=== PATIENT | male | born 1995 | race African-American/Black ===

== ENCOUNTER 2020-05-08 20:51 | Emergency (ER) | payer BC ==
[~2020-05-08] VITALS: Ht 188 cm; Wt 165.1 kg
[2020-05-08 21:07] LABS: HEMATOCRIT 39.5 % (42.0-52.0); HEMOGLOBIN 13.3 gm/dL (14.0-18.0); MCH 31.9 pg (26.0-34.0); MCHC 33.6 g/dL (28.0-37.0); MCV 94.9 fL (80.0-100.0); MPV 8.2 fl. (7.2-11.1); RBC 4.17 mil/uL (4.50-6.00); RDW-CV 14.2 % (10.5-14.5); WBC 6.3 thou/uL (4.0-11.0)
[2020-05-08 21:15] LABS: CALCIUM 9.2 mg/dL (8.5-10.1); CREATININE 1.1 mg/dL (0.6-1.3); POTASSIUM 3.2 mmol/L (3.5-5.1)
[2020-05-08 21:20] LABS: ALBUMIN 3.1 g/dL (3.4-5.0); TOTAL BILIRUBIN 0.5 mg/dL (<0.1-1.0); TOTAL PROTEIN 5.8 g/dL (6.4-8.2)
[2020-05-08 21:24] LABS: ACETAMINOPHEN < 2 ug/mL (10-30); ALCOHOL < 10 mg/dL (<10); SALICYLATE < 2.8 mg/dL (2.8-20.0)
[2020-05-09 06:57] VITALS: BP 179/97
--- NOTE | 2020-05-09 10:33 | EKG ---
[place] [address] ELECTROCARDIOGRAM REPORT Name: JOSELUIS NICOLE JR Room: [facility]#: [id number] Admission: 05/08/20 Attend Phys: Discharge: 05/09/20 Date of : 89 Date of Service: 05/08/202102 Report #: [id number] THIS REPORT FOR: //name// [facility] ED Test Date: 2020-05-08 Test Time: 21:03:12 Pat Name: JOSELUIS NICOLE Department: Room: Gender: [employer]: [place] : 1995 Requested By: Elena Sifuentes Order Number: [id number] MD: Reji Hernandez Measurements Intervals [place] Rate: 62 P: 9 AK: 148 QRS: 44 QRSD: 94 T: 9 QT: 402 QTc: 409 Interpretive Statements Sinus rhythm No previous ECG available for comparison Essentially normal EKG Electronically Signed On 05-09-2020 10:33:18 TEMPLATE CUTTER by Reji Hernandez [email or web address] <ELECTRONICALLY SIGNED> By: Taras Hernandez MD, [facility] 05/09/20 1033 02 02 Taras Hernandez MD, [facility] /EPI
== END 2020-05-09 06:58 | disposition home or self-care (01) ==
LOC: M.ERS 20:51
PROVIDERS: Personal Emergency Response Attendant
DX: T42.4X1A Poisoning by benzodiazepines, accidental (unintentional), initial encounter (principal); Y92.89 Other specified places as the place of occurrence of the external cause